=== PATIENT | female | born 1945 | race Caucasian/White ===

== ENCOUNTER 2023-06-30 08:34 | Outpatient (RCR) | payer MEDICARE, OTHER, SELFPAY | END 2023-06-30 23:59 | disposition home or self-care (01) | LOC: RPT 08:34 | PROVIDERS: ATTENDING PHYSICIAN Internal Medicine | DX: R42 Dizziness and giddiness (principal); Z73.6 Limitation of activities due to disability; R26.89 Other abnormalities of gait and mobility | CPT/HCPCS: 97162 ==

== ENCOUNTER 2023-07-30 11:15 | Outpatient (RCR) | payer MEDICARE, OTHER, SELFPAY | END 2023-07-30 23:59 | disposition home or self-care (01) | LOC: RPT 11:15 | PROVIDERS: ATTENDING PHYSICIAN Internal Medicine | DX: R42 Dizziness and giddiness (principal); R26.89 Other abnormalities of gait and mobility | CPT/HCPCS: 97112 ==

== ENCOUNTER → 2023-09-22 11:20 | Outpatient (REF) | payer MEDICARE, OTHER, SELFPAY ==
[2023-09-22 12:21] LABS: % Basophils 0.5 % (0-2); % Eosinophils 3.9 % (0-6); % Immature Granulocytes 0.3 % (0-0.5); % Lymphocytes 31.1 % (20.5-51.1); % Monocytes 8.1 % (1.7-9.3); % Neutrophils 56.1 % (42.2-75.2); Absolute Eosinophils 0.3 10^3/uL (0-0.7); Absolute Lymphocytes 2.4 10^3/uL (1.2-3.4); Absolute Monocytes 0.6 10^3/uL (0.1-0.6); Absolute Neutrophils 4.3 10^3/uL (1.4-6.5); Hematocrit 33.9 % (37.0-47.0); Hemoglobin 11.1 g/dL (12.0-16.0); Mean Corp Hgb Conc. 32.7 g/dL (33.0-37.0); Mean Corpuscular Hgb 32.6 pg (27.0-31.0); Mean Corpuscular Volume 99.4 fL (81.0-99.0); Mean Platelet Volume 9.5 fL (7.4-10.4); Nucleated Red Blood Cells % 0 %; Platelet Count 290 10^3/uL (130-400); Red Blood Cell Count 3.41 10^6/uL (4.20-5.40); Red Cell Dist. Width 13.6 % (11.5-14.5); White Blood Cell Count 7.7 10^3/uL (4.8-10.8)
[2023-09-22 12:47] LABS: ALT (SGPT) 13 U/L (0-35); AST (SGOT) 21 U/L (14-36); Albumin 4.3 g/dl (3.5-5.0); Alkaline Phosphatase 89 U/L (38-126); Blood Urea Nitrogen 25 mg/dl (7-17); Calcium 9.6 mg/dl (8.4-10.2); Carbon Dioxide 24 mmol/L (22-30); Chloride 105 mmol/L (98-107); HDL Cholesterol 40 mg/dl; LDL Cholesterol, Calculated 179 mg/dl; Potassium 4.9 mmol/L (3.5-5.1); Sodium 134 mmol/L (135-145); Total Bilirubin 0.4 mg/dl (0.2-1.3); Total Cholesterol 239 mg/dl (50-199); Triglyceride 101 mg/dl (10-149); Very Low Density Lipoprotein 20 mg/dl (0-30); eGFR 36.12
[2023-09-22 12:58] LABS: Glucose 94 mg/dl (70-99)
[2023-09-22 14:21] LABS: Glycohemoglobin (HgbA1c) 5.7 % (4.0-5.6)
== END ==
LOC: REG 11:20
PROVIDERS: ATTENDING PHYSICIAN Internal Medicine
DX: R53.83 Other fatigue (principal); R42 Dizziness and giddiness; E78.5 Hyperlipidemia, unspecified; R79.9 Abnormal finding of blood chemistry, unspecified; R53.0 Neoplastic (malignant) related fatigue
CPT/HCPCS: 36415; 80053; 80061; 83036; 84443; 85025

== ENCOUNTER → 2023-11-11 07:11 | Outpatient (REF) | payer MEDICARE, OTHER, SELFPAY ==
[2023-11-11 07:43] VITALS: BP 136/79; BP_SYST 73
[2023-11-11 07:45] LABS: % Basophils 0.6 % (0-2); % Eosinophils 3.3 % (0-6); % Immature Granulocytes 0.3 % (0-0.5); % Lymphocytes 18.2 % (20.5-51.1); % Monocytes 8.7 % (1.7-9.3); % Neutrophils 68.9 % (42.2-75.2); Absolute Basophils 0.1 10^3/uL (0-0.2); Absolute Eosinophils 0.3 10^3/uL (0-0.7); Absolute Lymphocytes 1.8 10^3/uL (1.2-3.4); Absolute Monocytes 0.9 10^3/uL (0.1-0.6); Absolute Neutrophils 6.9 10^3/uL (1.4-6.5); Hematocrit 31.2 % (37.0-47.0); Hemoglobin 10.4 g/dL (12.0-16.0); Mean Corp Hgb Conc. 33.3 g/dL (33.0-37.0); Mean Platelet Volume 9.4 fL (7.4-10.4); Nucleated Red Blood Cells % 0 %; Platelet Count 248 10^3/uL (130-400); Red Blood Cell Count 3.15 10^6/uL (4.20-5.40); Red Cell Dist. Width 14.7 % (11.5-14.5); White Blood Cell Count 10.1 10^3/uL (4.8-10.8)
[2023-11-11 07:56] LABS: INR 1.06; PT 13.8 Sec (11.4-14.6)
[2023-11-11] MEDS: ATIVAN 0.5 MG IV (08:39)
[2023-11-11] MEDS: NSS (PRESERVATIVE FREE) 0.25 ML IV (08:39)
[2023-11-11] MEDS: FLUSH (NSS) 1 FLUSH IV (08:40)
[2023-11-11 09:25] VITALS: BP 148/86
== END ==
LOC: RADI 07:11
PROVIDERS: ATTENDING PHYSICIAN Internal Medicine Hematology & Oncology; FAMILY PHYSICIAN Internal Medicine
DX: C88.0 Waldenstrom macroglobulinemia (principal); D68.8 Other specified coagulation defects
CPT/HCPCS: 88305; 88311; 88312; 36415; 38222; 77012; 85025; 85610; 88313; 88341; 88342

== ENCOUNTER → 2024-01-24 12:28 | Outpatient (REF) | payer MEDICARE, OTHER, SELFPAY ==
[2024-01-24 14:57] LABS: Blood Urea Nitrogen 26 mg/dl (7-17); Calcium 9.8 mg/dl (8.4-10.2); Carbon Dioxide 25 mmol/L (22-30); Chloride 102 mmol/L (98-107); Glucose 85 mg/dl (70-99); Potassium 5.1 mmol/L (3.5-5.1); Sodium 137 mmol/L (135-145); eGFR 42.62
== END ==
LOC: REG 12:28
PROVIDERS: ATTENDING PHYSICIAN Specialist; FAMILY PHYSICIAN Internal Medicine
DX: R79.89 Other specified abnormal findings of blood chemistry (principal); I10 Essential (primary) hypertension; D64.9 Anemia, unspecified
CPT/HCPCS: 36415; 80048

== ENCOUNTER → 2024-02-12 10:50 | Outpatient (REF) | payer MEDICARE, OTHER, SELFPAY | LOC: WDC 10:50 | PROVIDERS: ATTENDING PHYSICIAN Obstetrics & Gynecology Gynecology; FAMILY PHYSICIAN Internal Medicine | DX: Z12.31 Encounter for screening mammogram for malignant neoplasm of breast (principal) | CPT/HCPCS: 77063; 77067 ==

== ENCOUNTER → 2024-03-03 08:53 | Outpatient (REF) | payer MEDICARE, OTHER, SELFPAY ==
[2024-03-03 10:46] LABS: Blood Urea Nitrogen 24 mg/dl (7-17); Calcium 9.6 mg/dl (8.4-10.2); Carbon Dioxide 26 mmol/L (22-30); Chloride 102 mmol/L (98-107); Glucose 95 mg/dl (70-99); Potassium 4.6 mmol/L (3.5-5.1); Sodium 140 mmol/L (135-145); eGFR 46.91
== END ==
LOC: RAD 08:53
PROVIDERS: ATTENDING PHYSICIAN Internal Medicine Hematology & Oncology; FAMILY PHYSICIAN Internal Medicine; REFERRING PHYSICIAN Specialist
DX: C88.0 Waldenstrom macroglobulinemia (principal); I65.23 Occlusion and stenosis of bilateral carotid arteries
CPT/HCPCS: 36415; 80048; 93880

== ENCOUNTER 2024-07-07 08:29 | Emergency (ER) | payer MEDICARE, OTHER, SELFPAY ==
[2024-07-07 08:30] VITALS: BP 148/82
--- NOTE | 2024-07-07 09:09 | ED.GENMED ---
History of Present Illness
General
Chief Complaint: Dizziness
Source: patient and family (Brother brought patient to ED)
Exam Limitations: none
Time Seen by Provider: 07/07/24 08:44
Nursing documentation reviewed up to this point in time: agreed with
History of Present Illness
History of Present Illness:
78-year-old female presents emerged from complaining of dizziness that began yesterday morning. She felt like she was being thrown all around. This is when she woke up yesterday morning. Today she is again experiencing dizziness and a mild
frontal headache. She is concerned about her blood pressure being elevated at home, and also reports nausea.
Past History
Past History
ED Past Medical History: HTN and Other
ED Past Surgical History: Other
Social History
Tobacco: Non-smoker
Alcohol: None
Drug: None
Living: alone
Review of Systems
Review of Systems
Allergies reviewed?: Yes
All Other Systems: Not applicable
Constitutional: Reports no symptoms
EENT: Reports no symptoms
Respiratory: Reports no symptoms
Cardiac: Reports no symptoms; Denies chest pain
ABD/GI: Reports no symptoms
: Reports no symptoms
Musculoskeletal: Reports no symptoms
Skin: Reports no symptoms
Neurological: Reports dizzy
Endocrine: Reports no symptoms
Hematologic/Lymphatic: Reports no symptoms
Phy Exam
Physical Exam
Physical Exam:
Physical Exam
General: no apparent distress, not acutely ill
Neck: supple. no meningeal signs. normal posterior pharynx
Heart: s1/s2 regular rate and rhythm, no murmur. equal radial
pulses.
HEENT: Pupils equal round reactive to light, EOMI
Lungs: no acute respiratory distress. clear bilaterally
Abdomen: normal bowel sounds. not tender. no CVAT
Neuro: alert and oriented. no focal neurological deficits cranial nerves II through XII intact
Skin: no rash
Psychiatric: well kept. interactive and cooperative
Extremities: no edema. no calf tenderness. negative homans. good distal pulses
Course
Orders/Labs/Results
Orders:
Orders
07/07/24 08:35
Electrocardiogram (*1) Urgent
Reason for Study: Vertigo / Dizzy
07/07/24 08:36
EKG- Treatment ONCE
07/07/24 08:45
EKG- Treatment ONCE
07/07/24 09:05
CT Head W/o Iv Contrast Urgent
Comment:
Reason For Exam: headache, dizzy
Physical Therapy Consult [Pt Eval And Treat] Urgent
Treatment: vestibular eval
Activity Level: Ambulate
07/07/24 09:46
Complete Blood Count/With Diff Urgent
Comprehensive Metabolic Panel Urgent
Troponin I Urgent
Abnormal Lab Results
07/07/24
09:46
RBC 3.13 L 10^6/uL
(4.20-5.40)
Hgb 11.3 L g/dL
(12.0-16.0)
Hct 32.6 L %
(37.0-47.0)
MCV 104.2 H fL
(81.0-99.0)
MCH 36.1 H pg
(27.0-31.0)
RDW 15.1 H %
(11.5-14.5)
Lymphocytes % 16.3 L %
(20.5-51.1)
BUN 25 H mg/dl
(7-17)
Creatinine 1.4 H mg/dL
(0.6-1.0)
Total Protein 9.0 H g/dl
(6.3-8.2)
07/07/24 09:46
07/07/24 09:46
Vital Signs
Initial and Last Documented VS:
Initial Vital Signs
Temp Pulse Resp BP
97.5 F 102 18 148/82
07/07/24 08:30 07/07/24 08:30 07/07/24 08:30 07/07/24 08:30
Last Documented Vital Signs
Temp Pulse Resp BP Pulse Ox
97.5 F 78 18 148/86 96
07/07/24 08:30 07/07/24 11:45 07/07/24 11:45 07/07/24 11:03 07/07/24 10:45
MDM/Problems Addressed
Differential Diagnosis Includes:
CVA, vertigo
MDM/Problems Addressed:
38-year-old female with dizziness, unclear etiology. Does not appear to be CVA. Vital signs stable, no orthostasis. Stable for discharge.
Chronic conditions affecting care: HTN
*Radiology
Radiology exam reviewed: radiology read reviewed (CT head no acute findings)
*Pulse Oximetry
Patient hypoxic: no
*EKG
Interpreted by ED Provider?: Yes
EKG Intrepretation Date: 07/07/24
EKG Intrepretation Time: 09:40
Interpretation: abnormal
Comparison EKG: changes noted
Heart Rate: 85
Rate: normal
Rhythm: sinus
Eunice: normal axis
Interval: normal interval
QRS Pattern: normal QRS
Ischemia: non-specific ST changes
*Change Management Director Interpretation
Rate: normal
Interpretation: normal
Heart Rate: 85
Rhythm: sinus
*Critical Care Note
Total Time (30-74mins, 75-104mins- exclusive of procedures): Not Applicable
Patient Management
Social determinants of health affecting care: Living situation
Escalation/DeEscalation of care consider admission/obs:
admit not indicated
ED Attending Note
-
Portions of this chart may have been created with voice recognition software.� Occasional wrong word or��sound alike� substitutions may have occurred due to the inherent limitations of voice recognition software.
Discharge Plan
Departure
Patient Disposition: Home (Routine Discharge)
Date of Disposition: 07/07/24
Time of Disposition: 11:32
Patient with high blood pressure during this ER visit?: Yes
Condition: Good
Discharge Problem:
Dizziness
Instructions: Dizziness, BLOOD PRESSURE
Prescriptions:
No Action
escitalopram oxalate 20 MG tablet
20 mg PO DAILY
atorvastatin 10 mg Tablet
10 mg PO QPM
bupropion HCl 150 mg Tablet Extended Release 24 Hr
150 mg PO DAILY
melatonin 5 mg Tablet
5 mg PO HS PRN (Reason: insomnia)
vitamin [id number] acid 500-400 mcg Tablet
1 tab PO DAILY
Referrals:
Margareth Blackburn MD [Family Provider] - Call in 1-3 days for appt
Interventions
Interventions:
*Risk Screen - Suicide Last Done: 07/07/24 08:30
*General Assessment Last Done: 07/07/24 08:30
*Neglect/Abuse Screening Last Done: 07/07/24 08:30
*ED COVID-19 Vaccine History Last Done: 07/07/24 09:38
*Nursing Disposition Last Done: 07/07/24 12:16
ED- Cardiac Assessment Last Done: 07/07/24 09:38
ED- Neurological Assessment Last Done: 07/07/24 09:38
ED- Pulmonary Assessment Last Done: 07/07/24 09:38
Discharge Date and Time
Discharge Date/Time: 07/07/24 12:16
Print Language: [id number]
[2024-07-07 09:36] VITALS: BMI 29.9
[2024-07-07 09:46] VITALS: BP 139/79
[2024-07-07 10:00] VITALS: BP 128/70
[2024-07-07 10:54] VITALS: BP 168/81
[2024-07-07 10:54] LABS: % Basophils 0.4 % (0-2); % Eosinophils 2.8 % (0-6); % Immature Granulocytes 0.4 % (0-0.5); % Lymphocytes 16.3 % (20.5-51.1); % Monocytes 7.4 % (1.7-9.3); % Neutrophils 72.7 % (42.2-75.2); Absolute Eosinophils 0.2 10^3/uL (0-0.7); Absolute Lymphocytes 1.2 10^3/uL (1.2-3.4); Absolute Monocytes 0.6 10^3/uL (0.1-0.6); Absolute Neutrophils 5.5 10^3/uL (1.4-6.5); Hematocrit 32.6 % (37.0-47.0); Hemoglobin 11.3 g/dL (12.0-16.0); Mean Corp Hgb Conc. 34.7 g/dL (33.0-37.0); Mean Corpuscular Hgb 36.1 pg (27.0-31.0); Mean Corpuscular Volume 104.2 fL (81.0-99.0); Mean Platelet Volume 9.6 fL (7.4-10.4); Nucleated Red Blood Cells % 0 %; Platelet Count 255 10^3/uL (130-400); Red Blood Cell Count 3.13 10^6/uL (4.20-5.40); Red Cell Dist. Width 15.1 % (11.5-14.5); White Blood Cell Count 7.5 10^3/uL (4.8-10.8)
[2024-07-07 11:03] VITALS: BP 148/86
[2024-07-07 11:06] LABS: ALT (SGPT) 16 U/L (0-35); AST (SGOT) 21 U/L (14-36); Albumin 4.5 g/dl (3.5-5.0); Alkaline Phosphatase 67 U/L (38-126); Blood Urea Nitrogen 25 mg/dl (7-17); Calcium 9.5 mg/dl (8.4-10.2); Carbon Dioxide 25 mmol/L (22-30); Chloride 103 mmol/L (98-107); Estimated Creatinine Clearance 35 ml/min; Glucose 99 mg/dl (70-99); Potassium 4.5 mmol/L (3.5-5.1); Sodium 139 mmol/L (135-145); Total Bilirubin 0.5 mg/dl (0.2-1.3); eGFR 38.99
[2024-07-07 11:13] VITALS: BP 128/70; BP 168/81
[2024-07-07 11:18] LABS: Troponin I < 0.012 ng/ml
== END 2024-07-07 12:16 | disposition home or self-care (01) ==
LOC: EMR 08:29
PROVIDERS: EMERGENCY PHYSICIAN Emergency Medicine; FAMILY PHYSICIAN Internal Medicine
DX: R42 Dizziness and giddiness (principal); R51.9 Headache, unspecified; I10 Essential (primary) hypertension
CPT/HCPCS: 99284; 70450; 80053; 84484; 85025; 93005

== ENCOUNTER → 2024-07-28 13:18 | Outpatient (REF) | payer MEDICARE, OTHER, SELFPAY ==
[2024-07-28 15:01] LABS: Blood Urea Nitrogen 22 mg/dl (7-17); Calcium 9.8 mg/dl (8.4-10.2); Carbon Dioxide 23 mmol/L (22-30); Chloride 104 mmol/L (98-107); Glucose 93 mg/dl (70-99); Potassium 5.1 mmol/L (3.5-5.1); Sodium 138 mmol/L (135-145); eGFR 42.62
== END ==
LOC: REG 13:18
PROVIDERS: ATTENDING PHYSICIAN Specialist; FAMILY PHYSICIAN Internal Medicine
DX: I10 Essential (primary) hypertension (principal); R79.89 Other specified abnormal findings of blood chemistry
CPT/HCPCS: 36415; 80048

== ENCOUNTER 2024-10-04 11:34 | Emergency (ER) | payer MEDICARE, OTHER, SELFPAY ==
[2024-10-04 11:36] VITALS: BP 156/90
--- NOTE | 2024-10-04 13:11 | ED.GENMED ---
History of Present Illness
General
Chief Complaint: Musculo-Skeletal Complaint
Source: patient
Exam Limitations: none
Time Seen by Provider: 10/04/24 12:15
Nursing documentation reviewed up to this point in time: agreed with
History of Present Illness
History of Present Illness:
Patient is a 78 year old female presenting to the emergency department with left knee pain. She first noticed pain when she was getting up from a chair this past Wednesday although it has been gradually worsening. She is having significant discomfort
especially with weight bearing and now is having difficulty ambulating. Pain is localized to the inside of her left knee.
She denies any notable swelling. No pain in left calf or left ankle. No fevers, chest pain, or shortness of breath.
Patient has no known traumatic injury. She does report a history of osteoarthritis.
Past History
Past History
ED Past Medical History: HTN and Other
ED Past Surgical History: Other
Social History
Tobacco: Non-smoker
Alcohol: None
Drug: None
Living: alone
Review of Systems
Review of Systems
Allergies reviewed?: Yes
All Other Systems: ROS reviewed and negative except as documented in HPI and ROS
Phy Exam
Physical Exam
Physical Exam:
Vitals: Hypertensive, otherwise vital signs are stable. Afebrile
General: Patient is well appearing, no acute distress. Nontoxic appearing
Skin: Warm and dry, no rashes or lesions
Head: Normocephalic, atraumatic
Eyes: Sclera nonicteric.
Throat: Protecting airway
Neck: Normal ROM
Cardiac: Regular rate and rhythm.
Pulm: Normal respiratory effort. Lungs clear
Abdomen: Nondistended.
Extremities: Tenderness to left medial joint line and slightly inferiorly without any erythema or warmth of knee joint. No knee effusion. Left knee joint is stable without laxity. No erythema or fluctuance of bursa. Great ROM in left knee without
pain. LLE neurovascularly intact with palpable DP pulses and normal capillary refill
Neuro: AAOx3. CN II-XII intact. No focal neurologic deficits.
Psychiatric: Normal affect.
Course
Orders/Labs/Results
Orders:
Orders
10/04/24 11:39
Knee, Left 4 or More Views [CR Knee - Left 4 Or More View*] Urgent
Comment:
Reason For Exam: pain
10/04/24 13:36
Acetaminophen [Tylenol] 650 mg PO NOW STA
10/04/24 14:13
PT Consult [Pt Eval And Treat] Urgent
Activity Level: As Tolerated
10/04/24 15:23
Case Management Consult ONCE
Case Management Consult: Discharge Planning
Requested By:: PT/FAMILY
Comment: home PT
Vital Signs
Initial and Last Documented VS:
Initial Vital Signs
Temp Pulse Resp BP Pulse Ox
98.4 F 94 18 156/90 99
10/04/24 11:36 10/04/24 11:36 10/04/24 11:36 10/04/24 11:36 10/04/24 11:36
Last Documented Vital Signs
Temp Pulse Resp BP Pulse Ox
98.4 F 94 18 156/90 99
10/04/24 11:36 10/04/24 11:36 10/04/24 11:36 10/04/24 11:36 10/04/24 11:36
MDM/Problems Addressed
Differential Diagnosis Includes:
Not limited to: medial meniscal injury, pes anserine bursitis, PCL injury, osteoarthritis, etc
MDM/Problems Addressed:
Patient is a 78 year-old female presenting with left knee pain worsening over the past few days and difficulty ambulating. No known inciting event/trauma. No associated fevers, chills, numbness/tingling in affected extremity. Vitals as above. On
exam, patient is well appearing, and in no apparent distress. She does have mild diffuse edema of left knee with tenderness to palpation at the medial joint line and just inferiorly. No obvious joint infusion. No erythema or warmth of left knee.
Patient has decent range of motion in left knee. LLE neurovascularly intact. An L knee x-ray was obtained in triage without acute abnormalities. Ultimately- suspect meniscal injury or pes anserine bursitis. Do not suspect infectious process,
including septic arthritis or septic bursitis.
Given patients difficulty ambulating � physical therapy was consulted who came down to evaluate patient. Recommendation was made for walker. Case management was able to set up at home physical therapy. Patient ultimately stable for discharge home
with walker and orthopedic f/u. Advised ice, elevation, tylenol. Return precautions to discuss. Patient verbalized understanding.
Chronic conditions affecting care:
N/A
Acute Exacerbation and/or Progression of Chronic Illness:
N/A
*Radiology
Radiology exam reviewed: preliminary read by ED provider (L knee xray reviewed by co - no acute abnormalities) and radiology read reviewed
*Pulse Oximetry
Patient hypoxic: no
*EKG
Interpreted by ED Provider?: NA
*Agent Licensing Clerk Interpretation
Rate: Agent Licensing Clerk- N/A
*Critical Care Note
Total Time (30-74mins, 75-104mins- exclusive of procedures): Not Applicable
ED Attending Note
-
Portions of this chart may have been created with voice recognition software.� Occasional wrong word or��sound alike� substitutions may have occurred due to the inherent limitations of voice recognition software.
Discharge Plan
Departure
Patient Disposition: Home (Routine Discharge)
Date of Disposition: 10/04/24
Time of Disposition: 15:53
Patient with high blood pressure during this ER visit?: Yes
Condition: Good
Covid-19: Not Applicable
Discharge Problem:
Left knee pain
Instructions: Knee Pain (DC), BLOOD PRESSURE
Prescriptions:
No Action
escitalopram oxalate 20 MG tablet
20 mg PO DAILY
atorvastatin 10 mg Tablet
10 mg PO QPM
bupropion HCl 150 mg Tablet Extended Release 24 Hr
150 mg PO DAILY
melatonin 5 mg Tablet
5 mg PO HS PRN (Reason: insomnia)
vitamin [id number]-dpunk acid 500-400 mcg Tablet
1 tab PO DAILY
Referrals:
Madhu Parrish MD [Active] - Call in 1-3 days for appt
Margareth Blackburn MD [Family Provider] -
Activity Restrictions/Additional Instructions:
Return to the emergency department any fevers, significant redness, swelling, or warmth of left knee, numbness/tingling in left lower extremity, inability to walk or intractable pain, or any other concerns
- As discussed�your x-ray of your left knee showed no evidence of fracture or other acute abnormalities. I suspect you likely have a meniscal injury or bursitis
- Continue to ice/elevate your left knee and take Tylenol as needed for pain. You were given a walker that you can use as needed to ambulate.
- Case management will attempt to set up at home physical therapy for you. You should follow-up with orthopedics for further evaluation/management. You may require further imaging.
Monitor your symptoms closely and return to the emergency department with any acute worsening/new symptoms or any other concerns
Interventions
Interventions:
*Risk Screen - Suicide Last Done: 10/04/24 11:36
*General Assessment Last Done: 10/04/24 11:36
*Neglect/Abuse Screening Last Done: 10/04/24 11:36
*ED- Fall Risk Assessment Last Done: 10/04/24 11:36
*ED COVID-19 Vaccine History Last Done: 10/04/24 11:36
*Nursing Disposition Last Done: 10/04/24 16:30
ED-Musculoskeletal Assessment Last Done: 10/04/24 12:30
Discharge Date and Time
Discharge Date/Time: 10/04/24 16:30
Print Language: TAJIK
[2024-10-04] MEDS: TYLENOL 650 MG PO (13:44)
--- NOTE | 2024-10-04 16:01 | CM ---
CM following re: discharge planning.
CM consulted to assist pt with arrangisng VN servcies.
Reviewed pt's chart, met with pt.
Pt is a 78 year old female, arrived to ED after she had a fall. Pt reports she lives alone in a condo, 14 steps to enter and 2 steps to her room. 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 Pt reports she
has no children, has nieces and nephews.
PT and OT evaluations noted - home PT recommended. Pt is aware, expressed her agreement. VN choices given. Pt preferred [facility]. A referral to [facility] made.
Pt stated PT used a walker for her and she will drive home, her car is parked on the parking lot.
D/C plan: home with [facility] and family support. pt will drive home.
== END 2024-10-04 16:30 | disposition home or self-care (01) ==
LOC: EMR 11:34
PROVIDERS: EMERGENCY PHYSICIAN Emergency Medicine; FAMILY PHYSICIAN Internal Medicine
DX: M25.562 Pain in left knee (principal); I10 Essential (primary) hypertension
CPT/HCPCS: 99283; 73564

== ENCOUNTER → 2024-10-12 11:50 | Outpatient (REF) | payer MEDICARE, OTHER, SELFPAY ==
[2024-10-12 12:59] LABS: Blood Urea Nitrogen 23 mg/dl (7-17); Calcium 9.6 mg/dl (8.4-10.2); Carbon Dioxide 23 mmol/L (22-30); Glucose 105 mg/dl (70-99); Potassium 4.8 mmol/L (3.5-5.1); Sodium 140 mmol/L (135-145); eGFR 46.91
[2024-10-12 13:05] LABS: Chloride 105 mmol/L (98-107)
== END ==
LOC: REG 11:50
PROVIDERS: ATTENDING PHYSICIAN Specialist
DX: I10 Essential (primary) hypertension (principal); R79.89 Other specified abnormal findings of blood chemistry
CPT/HCPCS: 36415; 80048

== ENCOUNTER → 2025-02-17 11:05 | Outpatient (REF) | payer MEDICARE, OTHER, SELFPAY | LOC: WDC 11:05 | PROVIDERS: ATTENDING PHYSICIAN Obstetrics & Gynecology Gynecology; FAMILY PHYSICIAN Internal Medicine | DX: Z12.31 Encounter for screening mammogram for malignant neoplasm of breast (principal) | CPT/HCPCS: 77063; 77067 ==

== ENCOUNTER → 2025-03-12 10:50 | Outpatient (REF) | payer MEDICARE, OTHER, SELFPAY | LOC: DHVS 10:50 | PROVIDERS: ATTENDING PHYSICIAN Surgery Vascular Surgery; FAMILY PHYSICIAN Internal Medicine | DX: I65.23 Occlusion and stenosis of bilateral carotid arteries (principal) | CPT/HCPCS: 93880 ==

== ENCOUNTER → 2025-05-11 10:39 | Outpatient (REF) | payer MEDICARE, OTHER, SELFPAY ==
[2025-05-11 11:43] LABS: Hematocrit 36.7 % (37.0-47.0); Hemoglobin 12.9 g/dL (12.0-16.0); Mean Corp Hgb Conc. 35.1 g/dL (33.0-37.0); Mean Corpuscular Volume 106.4 fL (81.0-99.0); Nucleated Red Blood Cells % 0 %; Platelet Count 263 10^3/uL (130-400); Red Cell Dist. Width 15.9 % (11.5-14.5)
[2025-05-11 11:43] LABS: Urine Character Clear (Clear)
[2025-05-11 12:04] LABS: Urine Squamous Cell 26-30 /LPF (Few); Urine Urothelial Cell 0-2 /LPF (FEW)
[2025-05-11 12:05] LABS: Urine Red Blood Cell 0-2 /HPF (0-2); Urine White Cell 0-2 /HPF (0-5)
[2025-05-11 12:17] LABS: ALT (SGPT) 18 U/L (0-35); AST (SGOT) 24 U/L (14-36); Albumin 4.8 g/dl (3.5-5.0); Alkaline Phosphatase 72 U/L (38-126); Blood Urea Nitrogen 21 mg/dl (7-17); Calcium 9.8 mg/dl (8.4-10.2); Carbon Dioxide 24 mmol/L (22-30); Chloride 104 mmol/L (98-107); Glucose 101 mg/dl (70-99); HDL Cholesterol 52 mg/dl; LDL Cholesterol, Calculated 136 mg/dl; Potassium 4.9 mmol/L (3.5-5.1); Sodium 138 mmol/L (135-145); Total Protein 10.1 g/dl (6.3-8.2); Very Low Density Lipoprotein 16 mg/dl (0-30); eGFR 46.62
== END ==
LOC: REG 10:39
PROVIDERS: ATTENDING PHYSICIAN Specialist; FAMILY PHYSICIAN Internal Medicine
DX: I10 Essential (primary) hypertension (principal); R79.89 Other specified abnormal findings of blood chemistry
CPT/HCPCS: 36415; 80053; 80061; 81003; 81015; 85025